=== PATIENT | female | born 1965 | race Caucasian/White ===

== ENCOUNTER → 2022-12-10 15:45 | Outpatient (CLI) | payer OTHER, SELFPAY ==
--- NOTE | 2022-12-10 15:49 | MM_ITS ---
PROCEDURE INFORMATION: Exam: MG Bilateral Screening 3D Mammography Exam date and time: 12/10/2022 3:48 PM Age: 57 years old Clinical indication: Screening examination; No personal or family history of breast cancer TECHNIQUE: Imaging protocol: Bilateral Screening tomosynthesis and 2D mammography including computer-aided detection (CAD) when performed. COMPARISON: No relevant prior studies available. FINDINGS: MAMMOGRAPHY: Breast composition: The breasts are almost entirely fatty. Mass: None. Architectural distortion: None. Calcifications: No suspicious calcifications. Asymmetric density: None. Skin thickening: None. Axillary adenopathy: None. IMPRESSION: No mammographic evidence of malignancy. Annual screening is recommended unless otherwise clinically indicated. ASSESSMENT: BI-RADS Category 1: Negative
== END ==
PROVIDERS: PCP Family Medicine; Visit Provider Family Medicine
DX: Z12.31 Encounter for screening mammogram for malignant neoplasm of breast (principal)
CPT/HCPCS: 77063; 77067

== ENCOUNTER 2023-06-28 06:25 | Day surgery (SDC) | payer OTHER, SELFPAY ==
[2023-06-27 09:42] VITALS: BMI 30.8
[2023-06-28] MEDS: LACTATED RINGERS 1000ML 1,000 ML 25 ML IV (06:40)
[2023-06-28 06:44] VITALS: BP 109/66; PULSE 90; RESP 20; TEMP 36.6; O2SAT 94
--- NOTE | 2023-06-28 07:16 | P.PNANES_ITS ---
[facility] Disclaimer: The information contained in this section may have been updated after the patient was seen, as this information can be updated by other users. Medical History Hypertension Surgical History History of hysterectomy History of phacoemulsification of cataract of both eyes with intraocular lens implantation S/P LASIK surgery of both eyes Family History Other No significant family history Social History Smoking Status: Current every day smoker tobacco type: e-cigarettes alcohol intake: never substance use type: denies use current occupational status: other Travel in the last 8 weeks: None caffeine: Yes [facility] Anesthesia Checklist Patient Identification Patient Identification: Arm Band and Verbal (Name & ) Structural Data Admitted From: Home Planned Operative Procedure/s: Colonoscopy Consent for Planned Operative Procedure(s) Verified: Yes NPO Status Verified Time NPO: 00:00 Airway Assessment Mallampati Score:: Class II C-Spine Mobility Assessed: Yes TMJ Mobility Assessed: Yes Dentition: Good Dentition Neurological Assessment Level of Consciousness: Awake Hx Seizures: No Numbness or tingling in extremities: No Anesthesia Plan Anesthesia Risk discussed: Yes Anesthesia Plan: Verified ASA Class: II Anesthesia Type: MAC
[2023-06-28 07:30] VITALS: O2SAT 96
[2023-06-28 07:55] VITALS: BP 93/63; PULSE 98; RESP 14; O2SAT 92
--- NOTE | 2023-06-28 07:55 | P.PCN_ITS ---
Procedure: Date: 06/28/23 Patient Date of :: 1965 Procedure Performed:: Colonoscopy Indications:: Screening Performing Provider:: Rajan Gates MD Referring Provider:: . Sedation:: Monitored anesthesia care Procedure:: After informed consent was obtained the patient was taken to the endoscopy suite. Sedation ensued after the patient was transferred to the left lateral decubitus position. Pulse, blood pressure, and oxygen saturation were monitored throughout the procedure. Digital rectal exam revealed no significant abnormality. The colonoscope was placed in position. The entire colon was eval uated. The colonoscope was carefully removed and the patient was transferred to recovery in stable condition. Please see findings and specimens below for detail. 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
--- NOTE | 2023-06-28 08:02 | SUR.PHASEII ---
0755: Pt arrived to [place] with RN and GRINDER SET UP OPERATOR. Oral airway in place at this time.
[2023-06-28 08:05] VITALS: BP 109/53; PULSE 85; RESP 15; O2SAT 93
--- NOTE | 2023-06-28 08:07 | SUR.PHASEII ---
0805: Oral airway out. Pt waking up.
[2023-06-28 08:10] VITALS: BP 105/65; PULSE 86; RESP 16; O2SAT 98
== END 2023-06-28 08:20 | disposition home or self-care (01) ==
PROVIDERS: PCP Family Medicine; Visit Provider Surgery
PROC: 0DJD8ZZ Inspection of Lower Intestinal Tract, Via Natural or Artificial Opening Endoscopic (ICD-10-PCS; CPT 45378; principal; 2023-06-28 07:30)
DX: Z12.11 Encounter for screening for malignant neoplasm of colon (principal); K57.30 Diverticulosis of large intestine without perforation or abscess without bleeding; K55.20 Angiodysplasia of colon without hemorrhage
CPT/HCPCS: 45378

== ENCOUNTER 2024-12-06 14:54 | Outpatient (CLI) | payer OTHER, SELFPAY ==
--- OUTSIDE RECORDS SUMMARY | 2024-04-19 11:30 | XMS_ITS ---
[facility] [address] [facility] [address] [place] [id number] Care Team Providers Care Public Health Epidemiologist Name Role Phone Kosta Prado Primary Care Provider [phone] Grace Alonso [phone] Allergies Allergen (clinical drug ingredient) Drug/Non Drug Allergy documented on EMR Reaction Allergy Type Onset Date Status Substance with penicillin structure and antibacterial mechanism of action (substance) Penicillins Unknown Drug Allergy Active REASON FOR VISIT poss,sinus Encounters Encounter Location Date [facility] [address] [place] [phone] 04/19/2024 Grace Alonso Plan Of Treatment No Information Progress Notes * YOSI FARIASDOB: 7 (59 yo F)Acc No.[id number]:04/19/2024 Progress Notes Patient: YOSI TRIVEDI Provider: Grace Alonso M.D. :1965 A ge:58 Y S ex:Female Date:04/19/2024 Address:[address] [place] [address], [id number] Pcp:Kosta Prado Subjective: * Chief Complaints: * 1 . Poss,sinus. * ROS: D ERMATOLOGY: no R rohit. n o H yaron. G ASTROENTEROLOGY: no N ausea. n o V omiting. n o D iarrhea.? U ROLOGY: no D ifficulty urinating. n o B lood in urine. 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 * Surgical History: H ysterectomy, complete 01/17/2015, RT Cataract 09/15/2022, LT Cataract 09/24/2022. * Family History: F ather: alive 90 yrs, High Cholestrol. M other: 79 yrs, parkinsons, dementia.?2 sister(s) - healthy. 1 son(s) , 1 daughter(s) - healthy. . Pt has a daughter at the age of 17. * Social History: C URRENT TOBACCO USE S moking Status: P atient does smoke, p acks per day: 1 ,?number of cigarettes per day: 1 0, S sayda age of: [age], S moking preference: cigarettes. C affeine: yes, frequency: coffee daily. Home smoke detector use: yes. Alcohol: No. * Allergies: P enicillins. Objective: * Vitals: Assessment: Plan: * Treatment: * Images: Billing Information: * Visit Code: * Procedure Codes: * Electronic signature of Grace Alonso MD on 12/06/2024 at 02:58 PM EDT Sign off status: Pending * Provider: Grace Alonso M.D. Date: 06/20/2023 Generated for Gilma viveros/rTue/Benitting on: 12/06/2024 02:58 PM EDT
--- OUTSIDE RECORDS SUMMARY | 2024-11-29 10:00 | XMS_ITS ---
Author Organization [facility] Address [address] [place] [id number] Care Team Providers Care Insights Analyst Name Role Phone Kosta Prado Primary Care Provider [phone] Allergies Allergen (clinical drug ingredient) Drug/Non Drug Allergy documented on EMR Reaction Allergy Type Onset Date Status Substance with penicillin structure and antibacterial mechanism of action (substance) Penicillins Unknown Drug Allergy Active Results Component Value Reference Range Notes P-Comprehensive Metabolic Pa bailee (CMP) Reviewed date:12/04/2024 09:37:29 PM Interpretation:gluc 101, Ca 10.5 Performing Lab: Notes/Report: Test performed by [facility], [place] [address] [place] [address] , [address], [place] [address] Mingo Mejía MD, Client Service Associate CLIA: [id number] Sodium 139 135-145 mmol/L Potassium 3.9 3.5-5.3 mmol/L Chloride 103 97-108 mmol/L CO2 21 20-32 mmol/L Glucose 101 65-99 mg/dL BUN 14 6-20 mg/dL Creatinine 0.55 0.50-1.00 mg/dL Calcium 10.5 8.6-10.4 mg/dL eGFR by Creatinine 106 >59 mL/min/1.73m2 Protein 7.4 6.0-8.3 g/dL Albumin 4.7 3.5-5.3 g/dL Alkaline Phosphatase 50 35-121 IU/L ALT (SGPT) 18 <5-47 IU/L AST (SGOT) 18 <5-40 IU/L Bilirubin, Total 0.6 <0.2-1.2 mg/dL A/G Ratio 1.7 1.1-2.5 P-Lipid Panel Reviewed date:12/04/2024 09:37:29 PM Interpretation:trigs 207, non-hdl 136 Performing Lab: Notes/Report: Test performed by [facility] [address] [facility] , [address], [place] [address] Mingo Mejía MD, Client Service Associate CLIA: [id number] Cholesterol 185 <200 mg/dL Triglycerides 207 <150 mg/dL HDL Cholesterol 49 >39 mg/dL Cholesterol / HDL Ratio 3.78 0.00-4.44 Ratio Non-HDL Cholesterol 136 <130 mg/dL LDL Cholesterol (Calculation) 95 <130 mg/dL LDL Cholesterol Levels* Less than 100 mg/dL Optimal 100 to 129 mg/dL Near Optimal/ Above Optimal 130 to 159 mg/dL Borderline High 160 to 189 mg/dL High 190 mg/dL and above Very High * Categories as recommended by the 2004 ATPIII guidelines LDL/HDL Ratio 1.9 <3.3 Ratio LDL Cholesterol Patient History Test Date: 02/09/2024 LDL Results: 93 Units: mg/dL % Change: - Test Date: 11/29/2024 LDL Results: 95 Units: mg/dL % Change: +2% REASON FOR VISIT yearly physical, Needs labs, mammogram, colon cancer screening, & low dose chest CT Medications Medication SIG (Take, Route, Frequency, Duration) Notes Start Date End Date Status Rosuvastatin Calcium 10 MG 1 tablet Orally Once a day Active Claritin-D 12 Hour 5-120 MG 1 tab(s) orally every 12 hours Active Mucinex DM 30-600 MG 1 tablet as needed Orally every 12 hrs 03/16/2023 Active Lisinopril-hydroCHLOR Othiazide 20-25 MG 1 tablet Orally Once a day; Duration: 15 days Active Rosuvastatin Calcium 10 mg 1 tablet orally once a day; Duration: 15 days Pt needs appt Active Meclizine HCl 25 MG 1 tab(s) orally 3 times a day 03/20/2021 Not-Taking Fluticasone Propionate 50 MCG/ACT 1 spray(s) in each nostril once a day 08/11/2020 Not-Taking Fluconazole 150 MG 1 tab(s) orally once, may repeat in 7-10 days 04/22/2021 Not-Taking Lisinopril-hydroCHLOR Othiazide 20-25 MG 1 tab(s) orally once a day due for check up Active Social History Tobacco Use: Social History Observation Description Date Details (start date - stop date) Former Smoker NA - NA CURRENT TOBACCO USE: Question Answer Notes Are you a: former smoker Now Vapes * Vital Signs Weight 167.6 lbs 11/29/2024 Blood pressure systolic 122 mm Hg 11/30/19 25 Blood pressure diastolic 80 mm Hg 025 Heart Rate 85 /min 11/29/2024 Height 63 in 11/29/2024 BMI 29.69 kg/m2 11/29/2024 Encounters Encounter Location Date Provider Diagnosis [facility] [address] [facility] [address] [place] [phone] 11/29/2024 Kosta Prado HBP (high blood pressure) I10 ; Dyslipidemia E78.5 and Screening for breast cancer Z12.39 Assessments Encounter Date Diagnosis (ICD Code) Assessment Notes Treatment Notes Treatment Clinical Notes Section Notes 11/29/2024 HBP (high blood pressure) (ICD-10 - I10) 11/29/2024 Dyslipidemia (ICD-10 - E78.5) 11/29/2024 Screening for breast cancer (ICD-10 - Z12.39) 11/29/2024 Other Plan Of Treatment Medication Medication Name Sig Start Date Stop Date Notes Rosuvastatin Calcium 10 MG 1 tablet Oral ly Once a day Lisinopril-hydroCHLOROthiaz destiny 20-25 MG 1 tab(s) orally once a day due for check up Pending Test Test Name Order Date Mammogram 11/29/2024 Next Appt Details Follow Up: 6 Months, Reason: Progress Notes * YOSI FARIASDOB: 7 (59 yo F)Acc No.[id number]:11/29/2024 Physical Patient: YOSI TRIVEDI Provider: Kosta Prado M.D. :1965 A ge:59 Y S ex:Female Date:11/29/2024 Address:[address] [place], [place] [address], [place], [id number] Subjective: * Chief Complaints: * 1 . Yearly physical. 2. Needs labs, mammogram, colon cancer screening, & low dose chest CT. * HPI: H PI: 59 year old female presents with c/o Patient is here today for?Pt is here today for her yearly physical/check up. Pt sts she does need refills on her medications and labs done today as well. * ROS: D ERMATOLOGY: no R rohit. n o H yaron. G ASTROENTEROLOGY: no N ausea. n o V omiting. n o D iarrhea.? U ROLOGY: no D ifficulty urinating. n o B lood in urine. 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 * Surgical History: H ysterectomy, complete 01/17/2015, RT Cataract 09/15/2022, LT Cataract 09/24/2022, Colonoscopy/ Dr. Gates/ poor prep / Data deficit 2022. * Family History: F ather: alive 91 yrs, High Cholestrol. M other: 79 yrs, parkinsons, dementia.?2 sister(s) - healthy. 1 son(s) , 1 daughter(s) - healthy. . Pt has a daughter at the age of 17. * Social History: C URRENT TOBACCO USE A re you a: f ormer smoker Now Vapes . C affeine: yes, frequency: coffee daily. Home smoke detector use: yes. Alcohol: No. * Medications: T aking Claritin-D 12 Hour 5-120 MG Tablet Extended Release 12 Hour 1 tab(s) orally every 12 hours , Taking Mucinex DM 30-600 MG Tablet Extended Release 12 Hour 1 tablet as needed Orally every 12 hrs , Taking Lisinopril-hydroCHLOROthiazide 20-25 MG Tablet 1 tablet Orally Once a day , Taking Rosuvastatin Calcium 10 mg Tablet 1 tablet orally once a day , Notes to Pharmacist: Pt needs appt, Not-Taking Meclizine HCl 25 MG Tablet 1 tab(s) orally 3 times a day , Not-Taking Fluticasone Propionate 50 MCG/ACT Suspension 1 spray(s) in each nostril once a day , Not-Taking Fluconazole 150 MG Tablet 1 tab(s) orally once, may repeat in 7-10 days , Medication List reviewed and reconciled with the patient * Allergies: P enicillins. Objective: * Vitals: W t: 167.6, Temp: 98.6, BP: 122/80, HR: 85, Nurse: patricia, Ht: 63, BMI:29.69. * Examination: C ardiology: General Appearance: p leasant, NAD. Weight loss noted. H EENT: u nremarkable. C arotid upstroke: n ormal, no bruits. H eart sounds:?RRR, normal S1, S2. M urmur, click , gallop: n one. L ungs: c lear, no rales or wheezes. A bdomen: p ositive BS, soft, nontender. E xtremities: n o leg edema. ? Assessment: * Assessment: 1. H BP (high blood pressure) - I10 (Primary) 2 . D yslipidemia - E78.5? 3. S creening for breast cancer - Z12.39 Plan: * Treatment: Value Reference Range A /G Ratio 1.7 1.1-2.5 - * A lbumin 4.7 3.5-5.3 - g/dL * A lkaline Phosphatase 50 35-121 - IU/L * A LT (SGPT) 18 <5-47 - IU/L * A ST (SGOT) 18 <5-40 - IU/L * B ilirubin, Total 0.6 <0.2-1.2 - mg/dL * B UN 14 6-20 - mg/dL * C alcium 10.5 H 8.6-10.4 - mg/dL * C hloride 103 97-108 - mmol/L * C O2 21 20-32 - mmol/L * C reatinine 0.55 0.50-1.00 - mg/dL * G lucose 101 H 65-99 - mg/dL * P otassium 3.9 3.5-5.3 - mmol/L * S odium 139 135-145 - mmol/L * P rotein 7.4 6.0-8.3 - g/dL * e GFR by Creatinine 106 >59 - mL/min/1.73m2 * Kosta Prado 12/04/2024 09:37:16 PM EDT > See phone encounter 2.?Dyslipidemia? Refill Rosuvastatin Calcium Tablet, 10 MG, 1 tablet, Orally, Once a day, 90, Refills 1.?LAB: P-Lipid Panel (Collection Date & Time - 11/29/2024 01:40 PM)?trigs 207, non-hdl 136* Value Reference Range C holesterol / HDL Ratio 3.78 0.00-4.44 - Ratio * C holesterol 185 <200 - mg/dL * H DL Cholesterol 49 >39 - mg/dL * L DL Cholesterol (Calculation) 95 <130 - mg/d L * L DL/HDL Ratio 1.9 <3.3 - Ratio * N on-HDL Cholesterol 136 H <130 - mg/dL * T riglycerides 207 H <150 - mg/dL * Kosta Prado 12/04/2024 09:37:16 PM EDT > See phone encounter 3.?Screening for breast cancer?Imaging: Mammogram* Ana Renae 11/30/2024 09:01 :10 AM EDT > faxed to [facility] Scheduling * Follow Up: 6 Months * Images: Billing Information: * Visit Code: 46087 Office Visit, Est Pt., Level 4. * Procedure Codes: * Electronic signature of Kosta Prado MD on 12/06/2024 at 02:58 PM EDT Sign off status: Pending * Provider: Kosta Prado M.D. Date: 0 11/29/2024 Generated for Gustavoi ng/True/eTransmitting on: 0 12/06/2024 02:58 PM EDT History and Physical Notes * HPI (History of Present Illness) Category Sub-Category Detail Notes Category Not es HPI Patient is here today for Pt is here today for her yearly physical/check up. Pt sts she does need refills on her medications and labs done today as well Examination Category Sub-Category Detail Notes Category Not es Cardiology Lungs: clear, no rales or wheezes HEENT: unremarkable Heart sounds: RRR, normal S1, S2 Abdomen: positive BS, soft, n ontender Carotid upstroke: normal, no bruits Extremities: no leg edema Murmur, click , gallop: none General Appearance: pleasant, NAD. Weigh t loss noted
--- NOTE | 2024-12-06 14:57 | MM_ITS ---
PROCEDURE INFORMATION: Exam: MG Bilateral Screening 3D Mammography Exam date and time: 12/06/2024 3:05 PM Age: 59 years old Clinical indication: Screening examination TECHNIQUE: Imaging protocol: Bilateral Screening tomosynthesis and 2D mammography including computer-aided detection (CAD) when performed. COMPARISON: MG MM DIG SCREENING MAMM BI W/CAD 12/10/2022 3:48 PM FINDINGS: MAMMOGRAPHY: Breast composition: The breasts are almost entirely fatty. Mass: No suspicious masses. Architectural distortion: None. Calcifications: No suspicious calcifications. Asymmetric density: None. Skin thickening: None. Axillary adenopathy: None. IMPRESSION: No mammographic evidence of malignancy. Annual screening is recommended unless otherwise clinically indicated. ASSESSMENT: BI-RADS Category 1: Negative.
--- OUTSIDE RECORDS SUMMARY | 2024-12-06 14:58 | XMS_ITS | Clinical Summary ---
Author Organization [facility] Address [facility], [address] [place] [address] Care Team Providers Care Petrol Tanker Driver Name Role Phone System, Referring Not In Primary Care Provider U navailable Social History Tobacco Use Types Packs/Day Years Used Date Smoking Tobacco: Never Assessed Comments Unknown Sex and Gender Information Value Date Recorded Sex Assigned at Not on file Legal Sex Female 3:15 AM EST Gender Identity Not on file Sexual Orientation Not on file Plan of Treatment Not on file Care Teams Petrol Tanker Driver Relationship Specialty Start Date End Date System, Referring Not In PCP - General 05/06/10
== END 2024-12-06 23:59 | disposition home or self-care (01) ==
LOC: RAD 14:54
PROVIDERS: PCP Family Medicine; Visit Provider Family Medicine
DX: Z12.31 Encounter for screening mammogram for malignant neoplasm of breast (principal); R92.313 Mammographic fatty tissue density, bilateral breasts
CPT/HCPCS: 77063; 77067